=== PATIENT | female | born 1965 | race Caucasian/White ===

== ENCOUNTER 2022-06-21 14:01 | Emergency (ER) | payer BC ==
[2022-06-21] MEDS ORDERED: LORazepam 2 MG/ML SDV IVPUSH ONE (14:58)
[2022-06-21] MEDS ORDERED: HYDROmorphone 0.5 MG/0.5 ML Syringe IVPUSH ONE (16:29)
[2022-06-21] MEDS ORDERED: Ondansetron 4 MG/2 ML SDV IVPUSH ONE (17:48)
[2022-06-21] MEDS ORDERED: Acetaminophen/oxyCODONE 325-5 MG Tab PO ONE (17:49)
[2022-06-21] MEDS: HYDROmorphone 0.5 MG/0.5 ML Syringe IVPUSH SCH ×2 (20:59→23:15)
[2022-06-21] MEDS ORDERED: HYDROmorphone 0.5 MG/0.5 ML Syringe IVPUSH PRN (21:00)
[2022-06-22] MEDS: HYDROmorphone 0.5 MG/0.5 ML Syringe IVPUSH SCH ×3 (01:47→06:17)
[2022-06-22] MEDS: Ondansetron 4 MG/2 ML SDV IVPUSH SCH (06:16)
== END 2022-06-22 06:41 | disposition home or self-care (01) ==
LOC: JD.ED 14:01
DX: S32.591A Other specified fracture of right pubis, initial encounter for closed fracture (principal); S12.591A Other nondisplaced fracture of sixth cervical vertebra, initial encounter for closed fracture; S22.019A Unspecified fracture of first thoracic vertebra, initial encounter for closed fracture; S22.029A Unspecified fracture of second thoracic vertebra, initial encounter for closed fracture; S22.049A Unspecified fracture of fourth thoracic vertebra, initial encounter for closed fracture; Z88.2 Allergy status to sulfonamides; W10.9XXA Fall (on) (from) unspecified stairs and steps, initial encounter
CPT/HCPCS: 72125; 72141; 73502; 96374; 96375; 96376; 99284; A9270; J1170; J2060; J2405